=== PATIENT | female | born 1985 | race Caucasian/White ===

== ENCOUNTER 2017-09-04 16:16 | Emergency (ER) | payer MEDICAID, SELFPAY ==
[2017-09-04 16:17] VITALS: BP 122/79; PULSE 76; RESP 18; TEMP 36.5; O2SAT 96; BMI 34.1
--- NOTE | 2017-09-04 16:33 | ED.VISSUMM ---
- ER Visit Summary Date of Service: 09/04/17 Chief Complaint: Abdominal pain History of Present Illness: The patient is a 32 F who states that she has a burning right-sided abdominal pain. She states it starts in her groin and radiates to her back. She notes normal bowel movements. Normal urination. No foul smell to the urine. No fevers. No nausea vomiting. She had the same pain 5 months ago and was seen at a [place] facility. She states that after an evaluation no diagnosis was given. She states that they never gave her any physician follow-up with. She however does state that she has a family doctor. She did not follow-up with his doctor. She states the pain subsided until 2 days ago when it returned. Home treatment has included nothing. She tells me now but from looking at her chart for several years she carries a diagnosis of ulcerative colitis. She takes no medications for it and does not see a motion picture commentator. Physical Examination: Afebrile vital signs are stable Gen: Well-nourished well-developed morbidly obese. Patient does not open her eyes the entire time I am in the room. Head: Normocephalic atraumatic Eyes: Perrl EOMI ENT: TMs clear no rhinorrhea moist mucous membranes Neck: Supple no lymphadenopathy no JVD nontender CVS: Regular rate rhythm no murmurs normal S1-S2 Respiratory: No distress clear to auscultation bilaterally chest nontender Abdomen: Soft patient reports tenderness to palpation along the right side of her abdomen even to the lightest touch. This seems significantly out of proportion to the examination. Nondistended normal bowel sounds no masses Back: Nontender Extremity: Nontender no edema Skin: Normal color there are no rashes on the back or flank or abdomen. Neuro: alert orientated ?3 CN II-XII intact normal strength sensation reflexes gait cerebellar Psych: Normal affect normal mood Test Results: Emergency Department Course and Treatment: Patient was informed that she needs to give us a urine sample. Patient stated to the nurse that she will be unable to give us a urine specimen because she urinated 30 minutes ago at home. She told nursing that if she is going to be required to give us a urine specimen we will be waiting all night for 1. I informed the patient that we needed a urine specimen so we can proceed with CT imaging and he did check a test as well as evaluate for the possibility of urinary tract infection or hematuria. I informed the patient that we can bring her water and she can start drinking. Patient found this to be unacceptable and would like to leave. Impression: 1. Acute abdominal pain 2. ED elopement This note was generated with [employer] dictation software. It may contain incorrect words, spelling, and punctuation that were not noted in review of the chart prior to signing ED Disposition - Plan for ED Patient: Chief Complaint: Abd Pain Referrals: Chi Sepulveda [Primary Care Provider] -
--- NOTE | 2017-09-04 16:55 | NURSING ---
Pt was laying in room stating she would not give a urine sample. pt was verbally aggressive stating I just went to the bathroom 30 minutes before I came here, I can't give you a sample and you're not going to get one! I'll wait here all night. Pt spoke with Dr. Sosa and was also verbally aggressive with him. Pt stated she wanted to be seen by a new doctor or she was going to leave. Pt left room and ED with friend.
== END 2017-09-04 17:00 | disposition home or self-care (01) ==
LOC: ED 16:36
PROVIDERS: Emergency Provider Emergency Medicine; Family Provider Family Medicine; PCP Family Medicine
DX: R10.9 Unspecified abdominal pain (principal); E66.9 Obesity, unspecified; Z68.34 Body mass index [BMI] 34.0-34.9, adult; Z72.0 Tobacco use
CPT/HCPCS: 99281